=== PATIENT | female | born 1970 | race Caucasian/White ===

== ENCOUNTER → 2019-06-25 11:14 | Outpatient (CLI) | payer BC, SELFPAY ==
--- NOTE | ~2019-06-25 | MM_ITS ---
EXAMINATION: MM screening josee BI w christine HISTORY: Screening mammogram TECHNIQUE: Craniocaudal and mediolateral oblique 3-D tomosynthesis images were obtained and synthetic 2-D images were generated. CAD analysis was submitted and interpreted. COMPARISON: 02/18/2014, 01/18/2013 bilateral digital screening mammogram examinations BREAST PARENCHYMAL COMPOSITION: The breasts are extremely dense, which lowers the sensitivity of mamm ography. FINDINGS: Minimal benign calcification of the breasts. There is no evidence of suspicious mass, calci fication, or architectural distortion to suggest malignancy in either breast. There has been no suspi cious interval change. IMPRESSION: 1. No mammographic evidence of malignancy. 2. Recommend routine screening mammography in one year. BI-RADS Category 2: Benign finding(s). Reviewed, dictated and finalized at location A.
== END ==
PROVIDERS: Visit Provider Obstetrics & Gynecology
DX: Z12.31 Encounter for screening mammogram for malignant neoplasm of breast (principal)
CPT/HCPCS: 77063; 77067

== ENCOUNTER 2020-02-04 12:58 | Outpatient (CLI) | payer BC, SELFPAY ==
--- NOTE | ~2020-02-04 | US_ITS ---
EXAMINATION: US renal BI EXAM DATE: 02/04/2020 13:23 INDICATION: M54.5 - Low back pain TECHNIQUE: Multiple grayscale and Doppler images of the kidneys were obtained (by a technologist who performed the scan) and subsequently reviewed. There is no prior study for comparison. FINDINGS: Right kidney: There is normal contour and echogenicity. It measures 10.9 x 4.8 x 5.4 centimeters. T here are no focal renal lesions identified. There is no hydronephrosis. Left kidney: There is normal contour and echogenicity. It measures 9.8 x 5.0 x 4.8 centimeters. The re are no focal renal lesions identified. There is no hydronephrosis. Bladder unremarkable. IMPRESSION: Sonographically unremarkable kidneys. Reviewed, dictated and finalized at location B. [employer]
--- NOTE | 2020-02-04 13:00 | ECG_ITS ---
Measurements Intervals [place] Rate: 63 P: 73 ID: [id number] QRS: 75 QRSD: 97 T: 66 QT: 390 QTc: 401 Interpretive Statements SINUS RHYTHM INCOMPLETE RIGHT BUNDLE BRANCH BLOCK DELAYED PRECORDIAL R/S TRANSITION BASELINE ARTIFACT- II, III, AVF, V5 BORDERLINE ECG Electronically Signed On 02-04-2020 14:44:38 PUBLIC SAFETY TELECOMMUNICATOR by Sherif Sweeney D.O.
[2020-02-04 13:10] LABS: Basophils Absolute Auto 0.02 K/mm3 (0.00-0.10); Basophils Percent Auto 0.4 % (0.0-1.0); Eosinophils Absolute Auto 0.11 K/mm3 (0.02-0.50); Hematocrit 42.2 % (35.0-49.0); Immature Granulocyte Absolute 0.01 K/mm3 (0.00-0.00); Immature Granulocyte Percent A 0.2 % (0.0-0.0); Lymphocytes Absolute Auto 1.23 K/mm3 (1.10-4.50); Lymphocytes Percent Auto 22.8 % (18.0-42.0); Mean Corpuscular HGB Conc 33.2 g/dL (32.0-36.0); Mean Corpuscular Hemoglobin 34.1 pg (27.0-31.0); Mean Corpuscular Volume 102.9 fL (78.0-102.0); Mean Platelet Volume 8.9 fl (9.2-11.8); Monocytes Absolute Auto 0.41 K/mm3 (0.10-0.90); Monocytes Percent Auto 7.6 % (2.0-11.0); Neutrophils Absolute Auto 3.6 K/mm3 (1.7-7.2); Platelet Count Result 229 K/mm3 (150-420); Red Cell Distribution Width 12.1 % (11.6-14.4); White Blood Count 5.4 K/mm3 (4.8-10.8)
[2020-02-04 13:54] LABS: Alanine Aminotransferase 23 U/L (14-59); Albumin Level 3.9 g/dL (3.4-5.0); Alkaline Phosphatase 56 U/L (46-116); Anion Gap 8 mmol/L (8-16); Aspartate Amino Transferase 11 U/L (15-37); Bilirubin,Total 0.3 mg/dL (0.00-1.00); Blood Urea Nitrogen 13 mg/dL (7-18); Calcium 9.1 mg/dL (8.5-10.1); Carbon Dioxide 30 mmol/L (21-32); Chloride 104 mmol/L (98-108); Cholesterol 229 mg/dL (0-200); Estimated Glomerular Filt Rate > 60; Glucose 85 mg/dL (70-99); HDL Direct 71 mg/dL (40-60); LDL Cholesterol Calculated 134 mg/dL (<130); Osmolality Calculated 293 mOsm/kg (285-295); Potassium 3.8 mmol/L (3.5-5.1); Sodium 142 mmol/L (136-145); Triglycerides 121 mg/dL (0-150)
[2020-02-04 14:18] LABS: Thyroid Stimulating Hormone Reflex 1.59 u/IU/mL (0.36-3.74)
== END 2020-02-04 12:59 | disposition home or self-care (01) ==
LOC: CHSLAB 13:00
PROVIDERS: PCP Nurse Practitioner Family; Visit Provider Family Medicine
DX: R07.9 Chest pain, unspecified (principal); M54.5 Low back pain; N20.0 Calculus of kidney
CPT/HCPCS: 36415; 76775; 80053; 80061; 84443; 85025; 87086; 93005

== ENCOUNTER 2020-04-26 09:00 | Outpatient (CLI) | payer BC, SELFPAY ==
--- NOTE | 2020-04-26 09:42 | EST_ITS ---
Patient Info Name: Ginette Moreland Age: 50 years : 1970 Gender: Female Ht: 60 in Wt: 123 lbs BSA: 1.55 m2 Exam Date: 04/26/2020 9:57 AM Exam Location: [facility] Stress Patient Status: Outpatient Admit Date: 04/26/2020 Staff Ordering Physician: Sherif Sweeney DO Attending Provider: Sherif Sweeney DO Exercise Technologist: Bishop Chaudhary RDCS, RT Exercise Physician: Sherif Sweeney DO Exam Type: CA stress test treadmill Study Info A treadmill exercise stress test was performed. Summary 1. 1. Negative Pankaj exercise stress test for ischemic ST changes by ECG criteria. 2. 2. Good functional capacity, achieving 11 METs of workload. 3. 3. Appropriate HR response to exercise. 4. 4. Appropriate HR recovery at 1 minute post exercise. 5. 5. No imaging with stress testing. 6. 6. Patient informed of the above results. Protocol: Pankaj Stress ECG Details Stage: REST Duration (min): 1 min : 54 sec Speed (mph): 0.0 Grade (%): 0 HR (bpm): 84 SBP (mmHg): 123 DBP (mmHg): 72 METS: --- Stage: REST Duration (min): 2 min : 21 sec Speed (mph): 0.0 Grade (%): 0 HR (bpm): 85 SBP (mmHg): 123 DBP (mmHg): 72 METS: --- Stage: REST Duration (min): 2 min : 52 sec Speed (mph): 0.0 Grade (%): 0 HR (bpm): 86 SBP (mmHg): 123 DBP (mmHg): 72 METS: --- Stage: REST Duration (min): 4 min : 21 sec Speed (mph): 0.0 Grade (%): 0 HR (bpm): 91 SBP (mmHg): 123 DBP (mmHg): 72 METS: --- Stage: STAGE 1 Duration (min): 1 min : 0 sec Speed (mph): 1.7 Grade (%): 10 HR (bpm): 112 SBP (mmHg): 123 DBP (mmHg): 72 METS: --- Stage: STAGE 1 Duration (min): 2 min : 0 sec Speed (mph): 1.7 Grade (%): 10 HR (bpm): 123 SBP (mmHg): 123 DBP (mmHg): 72 METS: --- Stage: STAGE 1 Duration (min): 3 min : 0 sec Speed (mph): 1.7 Grade (%): 10 HR (bpm): 123 SBP (mmHg): 151 DBP (mmHg): 74 METS: --- Stage: STAGE 2 Duration (min): 1 min : 0 sec Speed (mph): 2.5 Grade (%): 12 HR (bpm): 128 SBP (mmHg): 151 DBP (mmHg): 74 METS: --- Stage: STAGE 2 Duration (min): 2 min : 0 sec Speed (mph): 2.5 Grade (%): 12 HR (bpm): 133 SBP (mmHg): 151 DBP (mmHg): 74 METS: --- Stage: STAGE 2 Duration (min): 3 min : 0 sec Speed (mph): 2.5 Grade (%): 12 HR (bpm): 142 SBP (mmHg): 151 DBP (mmHg): 74 METS: --- Stage: STAGE 3 Duration (min): 1 min : 0 sec Speed (mph): 3.4 Grade (%): 14 HR (bpm): 151 SBP (mmHg): 264 DBP (mmHg): 55 METS: --- Stage: STAGE 3 Duration (min): 2 min : 0 sec Speed (mph): 3.4 Grade (%): 14 HR (bpm): 157 SBP (mmHg): 264 DBP (mmHg): 55 METS: --- Stage: STAGE 3 Duration (min): 3 min : 0 sec Speed (mph): 3.4 Grade (%): 14 HR (bpm): 160 SBP (m
== END 2020-04-26 09:01 | disposition home or self-care (01) ==
PROVIDERS: PCP Nurse Practitioner Family; Visit Provider Internal Medicine Cardiovascular Disease
DX: R07.89 Other chest pain (principal)
CPT/HCPCS: 93017

== ENCOUNTER 2021-04-05 12:00 | Outpatient (CLI) | payer BC, SELFPAY ==
[2021-04-05 13:27] LABS: SARS-CoV-2 Ag Positive (Negative)
== END 2021-04-05 12:01 | disposition home or self-care (01) ==
LOC: CHSLAB 12:03
PROVIDERS: PCP Nurse Practitioner Family; Visit Provider Nurse Practitioner Family
DX: U07.1 COVID-19 (principal)
CPT/HCPCS: 87426; C9803

== ENCOUNTER → 2021-05-17 12:28 | Outpatient (CLI) | payer BC, SELFPAY ==
--- NOTE | ~2021-05-17 | MM_ITS ---
EXAMINATION: MM screening josee BI w christine HISTORY: Screening TECHNIQUE: Craniocaudal and mediolateral oblique 3-D tomosynthesis images were obtained and synthetic 2-D images were generated. CAD analysis was submitted and interpreted. COMPARISON: Comparison to multiple prior studies sequentially, with oldest reviewed study dated 06/11. BREAST PARENCHYMAL COMPOSITION: The breasts are extremely dense, which lowers the sensitivity of mamm ography FINDINGS: There is no evidence of suspicious mass, calcification, or architectural distortion to sugg est malignancy in either breast. There has been no suspicious interval change. IMPRESSION: 1. No mammographic evidence of malignancy. 2. Recommend routine screening mammography in one year. BI-RADS Category 1: Negative Reviewed, dictated and finalized at location A. D CROP GROWER
== END ==
PROVIDERS: Visit Provider Obstetrics & Gynecology
DX: Z12.31 Encounter for screening mammogram for malignant neoplasm of breast (principal)
CPT/HCPCS: 77063; 77067

== ENCOUNTER → 2022-08-08 12:17 | Outpatient (CLI) | payer BC, SELFPAY ==
--- NOTE | ~2022-08-08 | MM_ITS ---
EXAMINATION: MM screening [facility] BI w christine HISTORY: Screening mammogram TECHNIQUE: Craniocaudal and mediolateral oblique 3-D tomosynthesis images were obtained and synthetic 2-D images were generated. CAD analysis was submitted and interpreted. COMPARISON: 05/17/2021, 06/25/2019, 02/18/2014 BREAST PARENCHYMAL COMPOSITION: The breasts are extremely dense, which lowers the sensitivity of mamm ography. FINDINGS: No suspicious mass, calcification, or architectural distortion are identified in either facundo ast to suggest malignancy. There has been no suspicious interval change. IMPRESSION: 1. No mammographic evidence of malignancy. 2. Recommend routine screening mammography in one year. BI-RADS Category 1: Negative Reviewed, dictated and finalized at location A.
== END ==
PROVIDERS: PCP Obstetrics & Gynecology; Visit Provider Obstetrics & Gynecology
DX: Z12.31 Encounter for screening mammogram for malignant neoplasm of breast (principal)
CPT/HCPCS: 77063; 77067

== ENCOUNTER 2023-05-07 09:48 | Emergency (ER) | payer BC, SELFPAY ==
[2023-05-07 09:59] VITALS: BP 141/76; PULSE 88; RESP 18; TEMP 36.6; O2SAT 100
--- NOTE | 2023-05-07 10:41 | ED.URI ---
HPI - URI/Sore Throat General Chief Complaint: Upper Respiratory Infection Stated Complaint: Cough/Right Flank Pain Time Seen by Provider: 05/07/23 10:41 Source: patient, RN notes reviewed and old records reviewed Mode of arrival: ambulatory Limitations: no limitations History of Present Illness HPI Narrative: 53 year old female who presents to [facility] care with complaints of persisting cough with some pain under right ribs and lateral rib area for weeks. Patient reports that she had COVID in February and cough has improved but has never resolved completely. Patient reports that pain is improved with Ibuprofen and is worse when she takes a deep breath. Patient reports no shortness of breath, respirations are even and nonlabored with SAO2 100% on room air. MD elicited complaint: cough (persistent with right frontal and lateral rib pain area discomfort) Pertinent past history: other (COVID February) Onset (ago): week(s) (4-6) Consistency: intermittent Pain scale (0-10): 5 Able to tolerate fluids by mouth: Yes Treatments prior to arrival: ibuprofen Related Data Home Medications Medication Instructions Recorded Confirmed multivitamin (Daily Multi-Vitamin 1 tablet PO DAILY 05/25/19 07/25/22 tablet) cholecalciferol (vitamin D3) 25 25 mcg PO DAILY 07/17/20 07/25/22 mcg (1,000 unit) capsule ascorbic acid (vitamin C) 500 mg mg PO 07/25/22 07/25/22 capsule Allergies Allergy/AdvReac Type Severity Reaction Status Date / Time Penicillins Allergy Unknown Unknown Verified 05/07/23 09:57 Sulfa (Sulfonamide Allergy Unknown Unknown Verified 05/07/23 09:57 Antibiotics) sulfamethizole Allergy Unknown Unknown Verified 05/07/23 09:57 trimethoprim Allergy Unknown Unknown Verified 05/07/23 09:57 Review of Systems Review of Systems: CONSTITUTIONAL: Denies fever, chills, or sweats. EYES: Denies visual changes, redness, or discharge. ENT: Denies rhinorrhea, congestion, sore throat, or otalgia. CARDIOVASCULAR: Denies chest pain, palpitations, or edema. RESPIRATORY:Reports persistent cough and pain under right ribs and lateral ribs, denies dyspnea. GASTROINTESTINAL: Denies abdominal pain, nausea, vomiting, or diarrhea. GENITOURINARY: Denies dysuria or hematuria. SKIN: Denies rash or itching. MUSCULOSKELETAL: Denies back pain, joint pain, or myalgia. NEUROLOGIC: Denies headache, numbness, or weakness. PSYCHIATRIC: Denies anxiety or depression. All systems reviewed & are unremarkable except as noted in HPI and below PMFSH Past Medical History Medical History Acid reflux High cholesterol Vaginal delivery x 2 Surgical History Surgical History [place] teeth removed Family History Family History Father Hypertension Grandparent Hypertension Social History Social History Smoking status: Never smoker Second hand tobacco smoke exposure: No Alcohol intake: current Alcohol use details: social Substance use: never Substance use type: does not use Lack of Transportation: No Lack of Food: Never True Current Housing: I Have Housing Concerned About Future Housing: No Difficulty Paying Gas/Electric Bills: No Difficulty Paying for Meds: No Currently Unemployed: No Education: Bachelor's Degree Difficulty w/ Childcare or Family Care: No Living arrangements: with family Additional living arrangements comments: , has 2 children Occupation/Education: occupation Additional occupation/education comments: stay at home mom Comments At time of signature, agree with nursing past medical, surgical, social and family history. There is no relevant family history pertinent to the presenting complaint Exam Narrative: GENERAL: Well-appearing, well-nourished, and in n
== END 2023-05-07 11:08 | disposition home or self-care (01) ==
PROVIDERS: Emergency Provider Registered Nurse
DX: R05.3 Chronic cough (principal); M94.0 Chondrocostal junction syndrome [Tietze]; K21.9 Gastro-esophageal reflux disease without esophagitis; E78.00 Pure hypercholesterolemia, unspecified; Z86.16 Personal history of COVID-19
CPT/HCPCS: 99213; G0463

== ENCOUNTER 2024-02-06 14:34 | Outpatient (CLI) | payer BC, SELFPAY ==
--- NOTE | ~2024-02-06 | MM_ITS ---
EXAMINATION: MM screening josee BI w christine HISTORY: Screening TECHNIQUE: Craniocaudal and mediolateral oblique 3-D tomosynthesis images were obtained and synthetic 2-D images were generated. CAD analysis was submitted and interpreted. COMPARISON: Comparison to multiple prior studies sequentially, with oldest reviewed study dated 01/30. BREAST PARENCHYMAL COMPOSITION: Dense: The breasts are extremely dense, which lowers the sensitivity of mammography. FINDINGS: There is no evidence of suspicious mass, calcification, or architectural distortion to sugg est malignancy in either breast. There has been no suspicious interval change. IMPRESSION: 1. No mammographic evidence of malignancy. 2. Recommend routine screening mammography in one year. BI-RADS Category 1: Negative Reviewed, dictated and finalized at location B. IT CONTROL CLERK
== END 2024-02-06 14:35 | disposition home or self-care (01) ==
LOC: MICIMG 14:34
PROVIDERS: PCP Obstetrics & Gynecology; Visit Provider Obstetrics & Gynecology
DX: Z12.31 Encounter for screening mammogram for malignant neoplasm of breast (principal)
CPT/HCPCS: 77063; 77067

== ENCOUNTER 2024-04-04 14:35 | Emergency (ER) | payer SELFPAY ==
--- NOTE | ~2024-04-04 | XR_ITS ---
CHEST RADIOGRAPH, PA AND LATERAL CLINICAL HISTORY: chest pain. HEART FLUTTERS . COMPARISON: 09/16/2018 TECHNIQUE: PA and lateral views of the chest. FINDINGS The cardiomediastinal silhouette is unremarkable. The lungs are clear. Visualized osseous structures and soft tissues are unremarkable. IMPRESSION: No focal infiltrate or effusion. Reviewed, dictated and finalized at location A. [employer]IDENT [employer]PORATE DEVELOPMENT
[2024-04-04 14:41] VITALS: BP 132/75; PULSE 94; RESP 14; TEMP 36.4; O2SAT 100
--- NOTE | 2024-04-04 14:44 | ECG_ITS ---
Test Date: 2024-04-04 14:50:00 Measurements Intervals [place] Rate: 78 P: 62 RI: 181 QRS: 45 QRSD: 90 T: 51 QT: 362 QTc: 413 Interpretive Statements SINUS RHYTHM INCOMPLETE RIGHT BUNDLE BRANCH BLOCK No previous ECG available for comparison Electronically Signed On 04-07-2024 16:46:11 DRAMATIC ART TEACHER by Luis Alberto Campos M.D.
[2024-04-04 14:51] VITALS: PULSE 83; O2SAT 100
[2024-04-04 14:53] VITALS: BP 107/77; PULSE 81; RESP 18; O2SAT 100
--- NOTE | 2024-04-04 14:58 | ED_ITS ---
HPI - Chest Pain General Chief Complaint: Chest Pain Stated Complaint: heart fluttering, bilat arms tingling Time Seen by Provider: 04/04/24 14:42 History of Present Illness HPI narrative: 54-year-old female with a past medical history including hyperlipidemia, GERD. Patient presents to the emergency room with chief complaint of chest discomfort, palpitations sensations and vague tingling sensation in her fingers bilaterally. She states that they occur randomly over last few months and started in January. There worsening in frequency and intensity and lasted for approximately 30 minutes occasionally. She presently is not having any palpitations sensations or tingling sensations and states that she has no chest pain or heaviness. Occasionally she gets dyspnea when she has these episodes but presently no shortness of breath. No headache, vision change, nausea, vomiting, chest pain, shortness a breath presently, back pain, abdominal pain, fatigue, weakness or unilateral deficits. Patient was otherwise in her normal state of health. Recently started taking supplements for menopause. She has a family history of Graves disease but no known thyroid dysfunction, no history of significant cardiac disease in herself or her family members. Related Data Home Medications ?Medication ?Instructions ?Recorded ?Confirmed ?Last Taken ?Type multivitamin (Daily Multi-Vitamin 1 tablet PO DAILY 05/25/19 01/16/24 Unknown History tablet) cholecalciferol (vitamin D3) 25 25 mcg PO DAILY 07/17/20 01/16/24 Unknown History mcg (1,000 unit) capsule ascorbic acid (vitamin C) 500 mg mg PO 07/25/22 01/16/24 Unknown History capsule omega 7-sun-pcm-fish oil 100 cap PO 08/19/23 01/16/24 Unknown History mg-160 mg-1,000 mg capsule (Fish Oil) Allergies Allergy/AdvReac Type Severity Reaction Status Date / Time Penicillins Allergy Unknown Unknown Verified 04/04/24 14:45 Sulfa (Sulfonamide Allergy Unknown Unknown Verified 04/04/24 14:45 Antibiotics) sulfamethizole Allergy Unknown Unknown Verified 04/04/24 14:45 trimethoprim Allergy Unknown Unknown Verified 04/04/24 14:45 Review of Systems 2 Review of Systems: As reviewed above in HPI [facility] Past Medical History Medical History Acid reflux High cholesterol Vaginal delivery x 2 Surgical History Surgical History [place] teeth removed Family History Family History Father Hypertension Grandparent Hypertension Social History Social History Smoking status: Never smoker Second hand tobacco smoke exposure: No Alcohol intake: current Alcohol use details: social Substance use: never Substance use type: does not use Lack of Transportation: No Lack of Food: Never True Current Housing: I Have Housing Concerned About Future Housing: No Difficulty Paying Gas/Electric Bills: No Difficulty Paying for Meds: No Currently Unemployed: No Education: Bachelor's Degree Difficulty w/ Childcare or Family Care: No Living arrangements: with family Additional living arrangements comments: , has 2 children Occupation/Education: occupation Additional occupation/education comments: stay at home mom Exam 2 Narrative: GENERAL: [Well-appearing, well-nourished, and in no acute distress.] HEAD: [Normocephalic, atraumatic.] EYES: [PERRLA and EOMI.] ENT: Nares clear, no rhinorrhea or epistaxis. Mucous membranes moist. NECK: Supple. CHEST: [Clear to auscultation. No respiratory distress.] HEART: [Regular rate and rhythm]. No murmur heard. [Normal peripheral pulses.] ABDOMEN: [Soft, nondistended], [nontender], [No rigidity or guarding] EXTREMITIES: Normal range of motion. [No edema.] SKIN: Warm, dry, no rash. NEURO: [No focal deficits]. Alert and oriented [x3.] PSYCH: [Normal mood and affect.] Course Vital Signs Vital signs: Vital Signs Temperature 36.4 C L 04/04/24 14:41 Pulse Rate 94 04/04/24 14:41 Respiratory Rate 14 04/04/24 14:41 Blood Pressure 132/75 04/04/24 14:41 Pulse Oximetry 100 04/04/24 14:41 Oxygen Delivery Room Air 04/04/24 14:41 Temperature 36.4 C L 04/04/24 14:41 Pulse Rate 81 04/04/24 14:53 Respiratory Rate 18 04/04/24 14:53 Blood Pressure 107/77 04/04/24 14:53 Pulse Oximetry 100 04/04/24 14:53 Oxygen Delivery Room Air 04/04/24 14:51 MDM - Chest Pain MDM Narrative Medical decision making narrative: 54-year-old female presenting with palpitations intermittently associated with dyspnea and chest discomfort. She also has intermittent tingling in both her arms. Episodes have been increasing in frequency and intensity according to the patient over last few months. She was concerned that she had a 30 minute episode of this last night. Presently she is asymptomatic and has no complaints but is concerned about her heart and wants to get evaluated. She has a history of Graves disease in the family but no known thyroid dysfunction. She is otherwise well appearing not in any acute distress, has strong symmetric pulses with warm extremities. No calf asymmetry or swelling, no ectopy on the monitor or on auscultation, no murmurs, clear breath sounds throughout. Considerations presently are for intermittent transient dysrhythmias, ectopy, electrolyte disturbances, less likely AFib, very unlikely ACS or thromboembolic event. She has a 0 score for Wells criteria. Thyroid dysfunction also possible. Cardiac workup and thyroid studies were ordered including a chest x-ray, CBC, CMP, lipase, EKG, troponin, TSH. She was placed on continuous pulse oximetry and telemetry monitor. EKG shows no signs of ST segment elevations, depressions or inversions. Regular rate rhythm an axis, no previous EKG for comparison purposes but normal QTC of 395, QRS interval 90 milliseconds, FL interval 181 milliseconds. Normal sinus rhythm, no signs of conduction block or ectopy. Workup shows no leukocytosis or anemia. Negative troponin, normal TSH, normal electrolyte profile, chest x-ray unremarkable. Patient re-evaluated still asymptomatic while here in the emergency department. She is safe and stable for discharge home at this time. Refer to Cardiology for evaluation of Holter monitoring. Medical Records Data Attestation: I reviewed the patient's medical records. Lab Data Attestation: I reviewed the patient's lab results. 04/04/24 14:51 04/04/24 14:51 Labs: Lab Results 04/04/24 Range/Units 14:51 WBC 4.9 (4.5-10.0) K/mm3 RBC 4.48 (4.2-5.4) M/mm3 Hgb 15.1 H (12.0-15.0) g/dL Hct 45.4 (37.0-47.0) % MCV 101.3 H (80-100) fl MCH 33.7 (26-34) pg MCHC 33.3 (32-36) g/dl RDW 12.5 (11.5-14.5) % Plt Count 223 (150-375) k/mm3 MPV 8.8 (7.4-10.4) fl Immature Gran % (Auto) 0.6 H (0-0.5) % Neut % (Auto) 70.4 (45.5-73.1) % Lymph % (Auto) 19.8 (18.3-44.2) % Cataño % (Auto) 7.8 (2.6-8.5) % Eos % (Auto) 1.2 (0-4.4) % Baso % (Auto) 0.2 (0.2-1.2) % Lymph # (Auto) 0.97 (0.9-3.2) K/mm3 Cataño # (Auto) 0.4 (0.1-0.6) K/mm3 Eos # (Auto) 0.1 (0-0.3) K/mm3 Baso # (Auto) 0.0 (0.0-0.1) K/mm3 Abs Immat Gran (auto) 0.03 (0.00-0.031) K/mm3 Absolute Neuts (auto) 3.5 (1.3-6.7) K/mm3 Absolute Nucleated RBC 0.000 (0.0-0.012) K/mm3 Nucleated RBC % 0.0 (0.0-0.2) % PT 12.9 (11.1-14.7) Seconds INR 0.9 APTT 23.8 (22.3-36.8) Seconds Sodium 137 (137-145) mmol/L Potassium 3.9 (3.4-5.0) mmol/L Chloride 106 (98-107) mmol/L Carbon Dioxide 29 (22-30) mmol/L Anion Gap 2 L (4-12) mmol/L BUN 13 (7-17) mg/dL Creatinine 0.70 (0.7-1.0) mg/dL Estim Creat Clear Calc Not Reportable Estimated GFR > 60 (59 - ) Glucose 101 (65-110) mg/dL Calcium 9.7 (8.4-10.2) mg/dL Total Bilirubin 0.8 (0.2-1.3) mg/dL AST 25 (14-36) U/L ALT 38 H (6-35) U/L Alkaline Phosphatase 73 (38-126) U/L Troponin I < 0.012 (0.000-0.034) ng/mL Total Protein 8.0 (6.3-8.2) g/dL Albumin 4.7 (3.5-5.1) g/dL Lipase 52 (23-300) U/L TSH (Reflex) 1.360 (0.465-4.68) uIU/mL Imaging Data Attestation: I personally reviewed and interpreted this imaging study as follows: My impression: Impressions Chest X-Ray 04/04/24 15:09 IMPRESSION: No focal infiltrate or effusion. Discharge Plan Discharge Clinical Impression: Heart palpitations, Atypical chest pain Patient Disposition: Home, Self-Care Condition: Stable Instructions: Antibiotic Form, Heart Palpitations (DC) Additional Instructions: Your cardiac workup was very unremarkable, you have normal electrolytes and normal thyroid studies. Please follow-up with your primary care provider but we will also refer you to cardiology to establish care and to obtain Holter monitoring or longer-term monitoring for your palpitations. Return with any new or worsening concerns at any time. Patient Language: Botswanan Prescriptions: No Action cholecalciferol (vitamin D3) 25 mcg (1,000 unit) capsule 25 mcg PO DAILY ascorbic acid (vitamin C) 500 mg capsule PO estrogens-methyltestosterone [Covaryx H.S.] 0.625-1.25 mg tablet 1 tablet PO DAILY Qty: 30 1RF progesterone micronized [Prometrium] 200 mg capsule 200 mg PO DAILY Qty: 30 1RF multivitamin [Daily Multi-Vitamin] Tablet 1 tablet PO DAILY Fish Oil 100-160-1,000 mg capsule PO Follow-up/Referrals: Tito Pruitt MD [Physician] - 1 Week (Palpitations, Holter monitoring) Peter Espinoza MD [Primary Care Provider] - Time of Disposition: 16:08
[2024-04-04 15:00] LABS: Basophils Percent Auto 0.2 % (0.2-1.2); Eosinophils Absolute Auto 0.1 K/mm3 (0-0.3); Eosinophils Percent Auto 1.2 % (0-4.4); Hematocrit 45.4 % (37.0-47.0); Hemoglobin 15.1 g/dL (12.0-15.0); Immature Granulocyte Absolute 0.03 K/mm3 (0.00-0.031); Immature Granulocyte Percent A 0.6 % (0-0.5); Lymphocytes Absolute Auto 0.97 K/mm3 (0.9-3.2); Lymphocytes Percent Auto 19.8 % (18.3-44.2); Mean Corpuscular HGB Conc 33.3 g/dl (32-36); Mean Corpuscular Hemoglobin 33.7 pg (26-34); Mean Corpuscular Volume 101.3 fl (80-100); Mean Platelet Volume 8.8 fl (7.4-10.4); Monocytes Absolute Auto 0.4 K/mm3 (0.1-0.6); Monocytes Percent Auto 7.8 % (2.6-8.5); Neutrophils Absolute Auto 3.5 K/mm3 (1.3-6.7); Neutrophils Percent Auto 70.4 % (45.5-73.1); Platelet Count Result 223 k/mm3 (150-375); Red Blood Count 4.48 M/mm3 (4.2-5.4); Red Cell Distribution Width 12.5 % (11.5-14.5); White Blood Count 4.9 K/mm3 (4.5-10.0)
[2024-04-04 15:09] LABS: Alanine Aminotransferase 38 U/L (6-35); Albumin Level 4.7 g/dL (3.5-5.1); Alkaline Phosphatase 73 U/L (38-126); Anion Gap 2 mmol/L (4-12); Aspartate Amino Transferase 25 U/L (14-36); Bilirubin,Total 0.8 mg/dL (0.2-1.3); Blood Urea Nitrogen 13 mg/dL (7-17); Calcium 9.7 mg/dL (8.4-10.2); Carbon Dioxide 29 mmol/L (22-30); Chloride 106 mmol/L (98-107); Estimated Glomerular Filt Rate > 60; Glucose 101 mg/dL (65-110); Lipase 52 U/L (23-300); Potassium 3.9 mmol/L (3.4-5.0); Sodium 137 mmol/L (137-145)
[2024-04-04 15:10] LABS: INR 0.9; Partial Thromboplastin Time 23.8 Seconds (22.3-36.8); Prothrombin Time 12.9 Seconds (11.1-14.7)
[2024-04-04 15:21] LABS: Troponin I < 0.012 ng/mL (0.000-0.034)
[2024-04-04 16:15] VITALS: BP 112/68; PULSE 74; RESP 18; O2SAT 100
--- OUTSIDE RECORDS SUMMARY | 2024-04-11 06:26 | XMS_ITS | Clinical Summary ---
Author Organization [facility] Address [address] [place] [address] Phone Care Team Providers Care Fire Engine Pump Operator Name Role Phone Krista Burgess MD Primary Care Provider [phone] Social History Tobacco Use Types Packs/Day Years Used Date Smoking Tobacco: Never Assessed Sex and Gender Information Value Date Recorded Sex Assigned at Not on file Gender Identity Not on file Sexual Orientation Not on file Plan of Treatment Health Maintenance Due Date Last Done Comments DTAP/TDAP/TD VACCINES (1 - Tdap) 1990 HEPATITIS B VACCINES (1 of 3 - 19+ 3-dose series) 1990 CERVICAL CANCER SCREENING 2001 BREAST CANCER SCREENING 2011 05/31/2008 COLORECTAL SCREENING 01/29/2016 Colorectal Cancer Screening 01/29/2016 FIT-DNA Q 3 years 01/29/2016 FIT/FOBT Q 1 year 01/29/2016 Flex Sig/CT Colonography Q 5 years 01/29/2016 ZOSTER VACCINE (1 of 2) 2021 INFLUENZA VACCINE (#1) 2023 PNEUMOCOCCAL VACCINE 0-64 YEARS Aged Out No longer eligible based on patient's age to complete this topic Procedures Procedure Name Priority Date/Time Associated Diagnosis Comments MAMMO DIAGNOSTIC UNI LEFT W OR WO CAD Routine 05/31/2008 from Last 3 Months or Most Recently Relevant to Health Maintenance Results * MAMMO DIGITAL DIAG UNI LEFT (05/31/2008) Anatomical Region Laterality Modality Breast Left Other Abstract Provider MAMMO ORDERABLES from Last 3 Months or Most Recently Relevant to Health Maintenance Care Teams Fire Engine Pump Operator Relationship Specialty Start Date End Date Krista Burgess MD [address] [place] [id number] PCP - General 06/12/08
== END 2024-04-04 16:15 | disposition home or self-care (01) ==
PROVIDERS: Emergency Provider Student in an Organized Health Care Education/Training Program; PCP Obstetrics & Gynecology
DX: R07.89 Other chest pain (principal); R00.2 Palpitations; E78.5 Hyperlipidemia, unspecified; K21.9 Gastro-esophageal reflux disease without esophagitis
CPT/HCPCS: 36415; 71046; 80053; 83690; 84443; 84484; 85025; 85610; 85730; 93005; 99284

== ENCOUNTER 2024-05-27 09:46 | Outpatient (CLI) | payer OTHER, SELFPAY | END 2024-05-27 09:47 | disposition home or self-care (01) | PROVIDERS: PCP Family Medicine; Visit Provider Internal Medicine Cardiovascular Disease | DX: I87.1 Compression of vein (principal); I47.20 Ventricular tachycardia, unspecified | CPT/HCPCS: 93017; 93306 ==

== ENCOUNTER 2024-09-27 10:09 | Outpatient (CLI) | payer OTHER, SELFPAY ==
--- NOTE | 2024-09-30 10:17 | P.SLEEP_ITS ---
Sleep Study - Home Unattended Date of Study: 09/27/24 Ordering Provider: Sherif Sweeney DO Interpreting Provider: Dari Pascual DO Home Sleep Study Type: Watch PAT Height: 1.52 m Weight: 56.699 kg Body Mass Index: 24.4 Neck Circumference (inches): 11 [place]: 13 Reason for Sleep Study Daytime hypersomnia Sleep History The patient is a 54-year-old female a sleep study ordered by her floor waxer for evaluation sleep apnea. The patient admits to snoring loudly and interruptions in breathing while asleep. She denies choking or gasping at night. She denies having trouble breathing on her back. He does have morning headaches. She denies having a dry or sore mouth / throat in the morning. She denies nocturia. She denies. She denies having trouble falling or staying asleep. She denies having difficulty returning to sleep if she wakes up throughout the night. He denies any hypnotic or sedative use. She denies feeling anxious about sleep. She does feel tired or sleepy during the day. She does feel tired in the morning. She denies having the urge to fall asleep during the day. She denies feeling drowsy while driving. She denies sleep paralysis, cataplexy and hypnagogic/ hypnopompic hallucinations. She denies clenching or grinding her teeth. She denies kicking or jerking her legs excessively. She denies having a restless feeling in her legs. She goes to bed at midnight on work days and at 2:00 a.m. on her days off. It takes her 30 minutes to fall asleep. She gets 6 hours of sleep on work days and 7 hours on her days off. Her sleep is somewhat restorative on days off. She denies taking any planned naps. She denies dream enactment behavior. She denies sleep walking. She consumes 3-4 cups of caffeinated beverage per day. She consumes 1 alcoholic beverage 1-2 nights per week. She denies tobacco use. She exercises 5-7 nights per week. [facility] Past Medical History Medical History Acid reflux High cholesterol Vaginal delivery x 2 Surgical History Surgical History [place] teeth removed Family History Family History Father Hypertension Grandparent Hypertension Social History Social History Smoking status: Never smoker Second hand tobacco smoke exposure: No Alcohol intake: current Alcohol use details: social Substance use: never Substance use type: does not use Lack of Transportation: No Lack of Food: Never True Current Housing: I Have Housing Concerned About Future Housing: No Difficulty Paying Gas/Electric Bills: No Difficulty Paying for Meds: No Currently Unemployed: No Education: Bachelor's Degree Difficulty w/ Childcare or Family Care: No Living arrangements: with family Additional living arrangements comments: , has 2 children Occupation/Education: occupation Additional occupation/education comments: stay at home mom Medications Home Medications ?Medication ?Instructions ?Recorded ?Confirmed ?Type ascorbic acid (vitamin C) 500 mg 500 mg PO .prn 08/02/24 09/14/24 History capsule cholecalciferol (vitamin D3) 25 25 mcg PO .prn 08/02/24 09/14/24 History mcg (1,000 unit) capsule multivitamin (Daily Multi-Vitamin 1 tablet PO .prn 08/02/24 09/14/24 History tablet) omega 3-fyd-rok-fish oil 100 1,000 cap PO .prn 08/02/24 09/14/24 History mg-160 mg-1,000 mg capsule (Fish Oil) Sleep Procedure The sleep study was completed using [employer] a technically adequate device with seven channels: peripheral arterial tone, actigraphy, body position, snore, resp iratory movement, pulse oximetry, sleep staging, and heart rate. Prior to using the device, the patient received verbal and written instructions for its application and was provided with the help desk phone number for additional telephonic instruction with 24-hour availability of qualified personnel to answer questions. The study was scored using CMS guidelines. Sleep Architecture The total recording time is 6 hrs, 58 min. The total sleep time is 6 hrs, 20 min. Sleep latency is 16 minutes. REM latency is 68 minutes. The patient had 5 episodes of waking. Sleep architecture shows 24.6% deep sleep, 52.6% light sleep, and (as % Total Sleep Time) showed NREM (Light 52.6%; Deep 24.6%), and a 22.9% stage REM. The patient spent 100.0% of total sleep time in the supine position. Sleep efficiency was 90.91. Respiratory Analysis The overall AHI (pAHI 4%:) is 1.0. The overall AHI (pAHI 3%:) is 2.4. The central AHI is 0.0. The AHI was 1.6 in NREM and 5.0 in REM sleep. The AHI was 2.4 in Supine and N/A in Non-supine sleep. Percent of Liang García respirations is 0.0. Oximetry Data The oxygen desaturation index (ROXANNE 4%:) is 1.0. The mean saturation is 96%, and the lowest saturation is 92%. Time spent with saturation < 88% is 0.0 minutes. Snoring Profile Snoring average intensity is 41 dB. The patient snored above 45 decibels for 10.8 minutes, 2.8% of sleep time. Cardiac Profile The average pulse rate is 54 beats per minutes. The lowest pulse rate is 41 bpm. The highest pulse rate reported is 91 bpm. Atrial fibrillation was not detected. Premature beats occur 0.2 per minute. Assessment and Plan Assessment and Plan (1) Daytime hypersomnia: Code(s): G47.10 - Hypersomnia, unspecified Status: Acute Assessment and Plan: The patient had an overall AHI of 1.0 with desaturation down to 92%. This is not consistent with sleep-disordered breathing. If there are further concerns for a sleep disorder, I recommend that the patient have a split study with the use of a hypnotic to ensure we obtain enough sleep data. Data The data obtained during this sleep study is adequate for interpretation. Certification This sleep study has been reviewed by a board certified sleep medicine physician.
[2024-09-30 10:18] VITALS: BMI 24.4
== END 2024-09-28 13:16 | disposition home or self-care (01) ==
LOC: ANHCSM 10:10
PROVIDERS: PCP Family Medicine; Visit Provider Internal Medicine Cardiovascular Disease
DX: G47.10 Hypersomnia, unspecified (principal)
CPT/HCPCS: 95800

== ENCOUNTER 2025-02-07 14:48 | Outpatient (CLI) | payer OTHER, SELFPAY ==
--- NOTE | ~2025-02-07 | MM_ITS ---
EXAMINATION: MM screening josee BI w christine HISTORY: Screening TECHNIQUE: Craniocaudal and mediolateral oblique 3-D tomosynthesis images were obtained and synthetic 2-D images were generated. CAD analysis was submitted and interpreted. COMPARISON: Comparison to multiple prior studies sequentially, with oldest reviewed study dated 06/25/2019. BREAST PARENCHYMAL COMPOSITION: Dense: The breasts are extremely dense, which lowers the sensitivity of mammography. FINDINGS: There is no evidence of suspicious mass, calcification, or architectural distortion to suggest malignancy in either breast. There has been no suspicious interval change. IMPRESSION: 1. No mammographic evidence of malignancy. 2. Recommend routine screening mammography in one year. BI-RADS Category 1: Negative Reviewed, dictated and finalized at location [facility]. [facility]
== END 2025-02-07 14:49 | disposition home or self-care (01) ==
LOC: MICIMG 14:49
PROVIDERS: PCP Family Medicine; Visit Provider Obstetrics & Gynecology
DX: Z12.31 Encounter for screening mammogram for malignant neoplasm of breast (principal)
CPT/HCPCS: 77063; 77067